=== PATIENT | male | born 1960 | race Caucasian/White ===

== ENCOUNTER 2021-05-16 09:03 | Emergency (ER) | payer OTHER ==
[2021-05-16] MEDS ORDERED: Ibuprofen 200 MG TAB ONE (09:59)
== END 2021-05-16 10:05 | disposition home or self-care (01) ==
LOC: NAV ERS 09:03
DX: S50.12XA Contusion of left forearm, initial encounter (principal); W11.XXXA Fall on and from ladder, initial encounter